=== PATIENT | female | born 1970 | race Caucasian/White ===

== ENCOUNTER 2020-04-09 12:06 | Emergency (ER) | payer OTHER ==
[~2020-04-09] VITALS: Ht 177.8 cm; Wt 81.7 kg
[2020-04-09] MEDS ORDERED: ZOLOFT 50 MG TA50 MG PO (12:33)
[2020-04-09] MEDS ORDERED: NORCO 5-325 TA1 EAC2 PO (13:56)
[2020-04-09] MEDS ORDERED: IBUPROFEN 800800 M1 PO (13:56)
[2020-04-09 14:10] VITALS: BP 125/70
== END 2020-04-09 14:10 | disposition home or self-care (01) ==
LOC: M.ERS 12:06
DX: S92.811A Other fracture of right foot, initial encounter for closed fracture (principal); Z88.0 Allergy status to penicillin; Z90.49 Acquired absence of other specified parts of digestive tract; Z90.710 Acquired absence of both cervix and uterus; X58.XXXA Exposure to other specified factors, initial encounter; Y93.89 Activity, other specified; Y92.89 Other specified places as the place of occurrence of the external cause; Y99.8 Other external cause status